=== PATIENT | female | born 1950 | race Asian ===

== ENCOUNTER 2019-01-24 20:13 | Emergency (ER) | payer OTHER | END 2019-01-24 22:09 | disposition home or self-care (01) | LOC: JERFT 20:13 ==

== ENCOUNTER 2025-04-25 11:22 | Emergency (ER) | payer OTHER ==
[2025-04-25 11:34] VITALS: BP 144/46; PULSE 61; RESP 18; TEMP 98; BMI 25.7
== END 2025-04-25 11:46 | disposition home or self-care (01) ==
LOC: JERFT 11:22
DX: Z48.02 Encounter for removal of sutures (principal)
CPT/HCPCS: 99281-25